=== PATIENT | female | born 2005 ===

== ENCOUNTER → 2025-07-22 11:00 | Outpatient (REF) | payer OTHER, SELFPAY ==
--- OUTSIDE RECORDS SUMMARY | 2025-07-23 14:58 | XMS_ITS | Clinical Summary ---
Author Organization [facility] Address [address] [place] [id number] Phone Care Team Providers Care Ore Puncher Name Role Phone Jumana Barney MD Primary Care Provider [phone] Allergies No known active allergies Medications No known medications Active Problems Problem Noted Date Diagnosed Date Need for vaccination 08/01/2022 Overview (01/08/2025): 08/20. Patient thinks he got flu and men b vaccine at [facility]. Will check records and f/u for vaccine visit if needed 10/21: Patient declines flu and covid vaccines, encouraged. Also reviewed HPV and continues to defer. Still believes he got Men B series, not in registry. Encouraged him to look up college vaccine records. He has follow up in 1 month and will revisit. 11/22: confirmed never received Men B vaccine in college records. Strongly recommended and declined. 01/21: continues to decline HPV. Assessment & Plan (10/15/2023 2:41 PM EST): 10/21: Patient declines flu and covid vaccines, encouraged. Still believes he got Men B series, not in registry. Encouraged him to look up college vaccine records. He has follow up in 1 month and will revisit. Assessment & Plan (08/01/2022 1:28 PM EDT): 08/20. Patient thinks he got flu and men b vaccine at [facility]. Will check records and f/u for vaccine visit if needed Screening for hyperlipidemia 07/29/2021 Overview (10/20/2023): 07/28/2021 TC 139 HDL 29 Non-HDL 109 10/21: Fasting lipids ordered with other lab work. HDL 40.7. Continue healthy diet and exercise. Assessment & Plan (10/15/2023 2:41 PM EST): 10/21: Fasting lipids ordered with other lab work. Adolescent idiopathic scoliosis of thoracic pool on 07/28/2020 Overview (10/15/2023): 5 degree curve of upper thoracic spine on scoliometer. 06/2021: unchanged 06/2022: unchanged 09/2023: unchanged Assessment & Plan (10/15/2023 3:01 PM EST): 09/2023: unchanged BMI less than 19,adult 05/09/2019 Overview (01/09/2025): 04/2019: 3rd percentile, weight 103 lbs, unchanged from 2018 [facility]. Goals: eat breakfast daily, bring snacks to school, go to grocery with mom. Discussed potential of starting periactin if no weight gain. Follow-up in 2 months. 06/2020: No follow up until [facility]. BMI now at 1st %'ile. forgets to eat at times. Discussed calorie needs, eating 3 small meals/day plus snacks and sources of high calorie healthy foods. 06/2022: refer to nutrition to start, consider labs 09/2023: BMI remains on 1st percentile. Saw nutrition for 1 visit, not helpful. Still struggling with eating enough and low appetite. No body image issues or restrictive eating. UA done, spec grav 1.030. Encouraged fluid intake. CBC, celiac, thyroid panel, CMP, ESR WNL. Will return to office in 1 month for follow up. Consider GI referral pending labs. 10/2023: Weight stable with small interval weight gain. Refer to GI/nutrition. 12/2024: Weight down 6 lbs since last year. BMI 17. Never saw GI/Nutrition. Refer back to them. Labs done last year reassuring (CBC, Thyroid, celiac, CMP/LFTs, ESR). Denies restriction or dysmorphia, wants to gain weight. Plan to start cyproheptadine for appetite stimulation, 4 mg nightly for one week, then increase to 8 mg night. Discussed side effects of medication. Plan for cycling 3 weeks on, 1 week off. Will follow up in the office in a month for weight check. Assessment & Plan (01/09/2025 12:05 AM EDT): 12/2024: Weight down 6 lbs since last year. BMI 17. Never saw GI/Nutrition. Refer back to them. Labs done last year reassuring (CBC, Thyroid, celiac, CMP/LFTs, ESR). Denies restriction or dysmorphia, wants to gain weight. Plan to start cyproheptadine for appetite stimulation, 4 mg nightly for one week, then increase to 8 mg night. Discussed side effects of medication. Plan for cycling 3 weeks on, 1 week off. Will follow up in the office in a month for weight check. Assessment & Plan (10/15/2023 3:01 PM EST): 09/2023: BMI remains on 1st percentile. Saw nutrition for 1 visit, not helpful. Still struggling with eating enough and low appetite. No body image issues or restrictive eating. UA done, spec grav 1.030. Encouraged fluid intake. CBC, celiac, thyroid panel, CMP, ESR ordered. Will return to office in 1 month for follow up. Consider GI referral pending labs. Assessment & Plan (08/01/2022 1:26 PM EDT): 06/2022: refer to nutrition to start, consider labs Myopia of both eyes 09/09/2010 Overview (01/08/2025): 12/2024: sees optho annually for eye exam. Continues to wear glasses. 04/2019: Wears glasses, working well. Assessment & Plan (01/08/2025 11:57 PM EDT): 12/2024: sees optho annually for eye exam. Continues to wear glasses. Deficiency of rlimvyb-2-cgnhjtxnu dehydrogenase (G6PD) 2007 Overview (08/01/2022): jaundice. Phototherapy. Brother with G6PD. 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 PPSV23 received 08/20 Resolved Problems Problem Noted Date Diagnosed Date Resolved Date Alcoholic intoxication without complication 07/29/2021 08/01/2022 Overview (07/29/2021): Seen at ED 12/2020: denies any further use Vaccine refused by parent 07/28/2020 Overview (07/28/2020): Defers HPV Adolescent problems 05/09/2019 07/28/20 20 Overview (07/28/2020): Spends several hours on computers, less interest in other activities. Denies depression/SI, but tearful in exam room. Discussion regarding well-being, returning to see social services director- will think about it. 06/2020: resolved. Nice friend group Pes planus 08/13/2017 08/01/2022 Overview (05/09/2019): Wears orthotics. Acquired deformity of chest and rib 01/10/2017 05/01/2018 Immunizations Immunization Administration Dates Next Due DTaP 5 11/04/2008, 6,05/12/2004,03/09,2003 Hep A, ped/adol 05/01/2008,2007 Hep B, ped/adol 08/04/2004,2003,2003 Hib (PRP-T) 11/29/2005, 4,03/09/2004,12/30 IPV 11/04/2008, 6,11/10/2004,03/09,2003 Influenza, injectable, quadr ivalent, preservative free 07/29/2021,07/28/2020 Influenza, injectable, trivalent 07/02/2014,08/30,10/10/2009 MMR 11/04/2008,11/29/2005 Meningococcal Conj (Menactra) MCV4P 07/28/2020,0 07/29/2015 Pneumococcal Conjugate 11/10/2004,2003,03/09/2004,12/30 Pneumococcal Polysaccharide 08/01/2022 Tdap 01/03/2025,07/29/2015 Varicella 11/04/2008,11/29/2005 Family History Medical History Relation Name Comments Uylntcm-2-uxql deficiency Brother Relation Name Status Comments Brother Social History Tobacco Use Types Packs/Day Years Used Date Smoking Tobacco: Never Smokeless Tobacco: Never Comments:never smoker Alcohol Use Standard Drinks/Week Comments No 0 (1 standard drink = 0.6 oz pur e alcohol) Hunger/Food Answer Date Recorded In the last 12 months, did y ou or your family ever eat less than you felt you should because there wasn't enough money for food? No 12/30/2024 Stable Housing Answer Date Recorded Are you worried that in the next 2 months you may not have stable housing? No 12/30/2024 Transportation Concerns Answer Date Rec orded In the last 12 months, have you or your family ever had to go without healthcare because you didn't have a way to get there? No 12/30/2024 Hazards in Home Answer Date Recorded Think about the place you li ve. Do you have problems with any of the following? Pests (mice or roaches), mold, no/not working smoke detectors, water leaks, no window guards. No 2024 Financing Utilities Answer Date Recorde d In the last 12 months, has t he electric, gas, oil, or water company threatened to shut off your services in your home? No 12/30/2024 Safety at Home Answer Date Recorded Are you or your family worried about feeling saf e in your home? No 12/30/2024 Outside Support Answer Date Recorded Do you feel that you need mo re support from other people or programs to help you care for yourself or your family? No 12/30/2024 Understanding Health Concerns Answer Da te Recorded Do you need help understandi ng your or your child's healthcare needs (diagnosis, medications, plan, etc.)? No 12/30/2024 Financing Health Concerns Answer Date R ecorded In the last 12 months, was t here a time when your child needed to see a doctor or get medications or supplies but could not because of cost? No 12/30/2024 Missing School or Work Answer Date Arcadio rded Did you or your child miss s chool or work because of a health problem that could have been avoided? No 12/30/2024 Child Education Answer Date Recorded Do you have concerns about y our/your child's learning or behavior in school, preschool, or daycare? No 12/30/2024 Sex and Gender Information Value Date Recorded Sex Assigned at Male 08/01/2022 11:40 AM EDT Legal Sex Male 6:38 PM EDT Gender Identity Male 07/30/2022 3:10 PM EDT Sexual Orientation Straight 07/28/2020 2: 29 PM EDT Last Filed Vital Signs Vital Sign Reading Time Taken Comments Blood Pressure 123/77 01/03/2025 4:35 PM EST Pulse 76 01/03/2025 4:35 PM EST Temperature 36.4 C (97.5 F) 05/01/2017 3:40 PM EDT Respiratory Rate - - Oxygen Saturation - - Inhaled Oxygen Concentration - - Weight 52.3 kg (115 lb 6.4 oz) 01/03/2025 4:35 P M EST Height 173.5 cm (5' 8.31 ) 01/03/2025 4:35 PM ES T Body Mass Index 17.39 01/03/2025 4:35 PM EST Plan of Treatment Health Maintenance Due Date Last Done Comments HPV Vaccines (1 - Male 3-dos e series) 2018 Men B Vaccine (1 of 2 - Standard) 2019 Influenza Vaccines (#1) 2025 07/29/20, 07/28/2020, 07/02/2014, Additional history exists COVID-19 Vaccine (4 - 2024-2 6 season) 2025 06/20/2022, 02/17/2021, 01/20/2021 DTaP,Tdap,and Td Vaccines (8 - Td or Tdap) 01/03/2035 01/03/2025, 07/29/2015, 11/04/2008, Additional history exists Hepatitis B Vaccines Completed 08/04/2004, 2003, 2003 HIB Vaccines Completed 11/29/2005, 04/29, 03/09/2004, Additional history exists Hepatitis A Vaccines Completed 05/01/2008, 11/01/19 08 IPV Vaccines Completed 11/04/2008, 11/01, 11/10/2004, Additional history exists MMR Vaccines Completed 11/04/2008, 11/29/2005 Varicella Vaccines Completed 11/04/2008, 11/29/2005 Meningococcal Vaccine Completed 07/28/2020, 015 Pneumococcal Vaccine Completed 08/01/2022, 11/10/2004, 05/12/2004, Additional history exists Insurance PPO Care Teams Ore Puncher Relationship Specialty Start Date End Date Jumana Barney MD [address] [id number] PCP - General Pediatrics 01/01/21
--- OUTSIDE RECORDS SUMMARY | 2025-07-23 14:58 | XMS_ITS | Encounter Summary ---
Author Organization [facility] Address [address] [place] [address] Phone Care Team Providers Care Youtuber Name Role Phone Jumana Barney MD Primary Care Provider [phone] Encounter Details Date Type Department Care Team ([facility] st Contact Info) Description 03/17/2017 Conversion Encounter [facility] [address] [address] Martina Modi MD Social History Tobacco Use Types Packs/Day Years Used Date Smoking Tobacco: Never Comments:never smoker Sex and Gender Information Value Date Recorded Sex Assigned at Male 08/01/2022 11:40 AM EDT Legal Sex Male 6:38 PM EDT Gender Identity Male 07/30/2022 3:10 PM EDT Sexual Orientation Straight 07/28/2020 2: 29 PM EDT documented as of this encounter Plan of Treatment Not on file documented as of this encounter Visit Diagnoses Not on filedocumented in this encounter Care Teams Youtuber Relationship Specialty Start Date End Date Jumana Barney MD [address] [address] PCP - General Pediatrics 01/01/21 documented as of this encounter
--- OUTSIDE RECORDS SUMMARY | 2025-07-23 14:58 | XMS_ITS | Encounter Summary ---
Author Organization [facility] Address [address] [place] [address] Phone Care Team Providers Care Grainer Machine Name Role Phone Jumana Barney MD Primary Care Provider [phone] Encounter Details Date Type Department Care Team ([facility] st Contact Info) Description 03/17/2017 Conversion Encounter [facility] [address] [phone] Martina Modi MD Social History Tobacco Use [...] on filedocumented in this encounter Care Teams Grainer Machine Relationship Specialty Start Date End Date Jumana Barney MD [address] [address] PCP - General Pediatrics 01/01/21 documented as of this encounter
--- OUTSIDE RECORDS SUMMARY | 2025-07-23 14:58 | XMS_ITS | Encounter Summary ---
Author Organization [facility] Address [address] [place] [address] Phone Care Team Providers Care Blood Tester Fowl Name Role Phone Jumana Barney MD Primary Care Provider [phone] Encounter Details Date Type Department Care Team ([facility] st Contact Info) Description 03/17/2017 Conversion Encounter [facility] [address] [address] Martina Modi MD Social History Tobacco Use [...] on filedocumented in this encounter Care Teams Blood Tester Fowl Relationship Specialty Start Date End Date Jumana Barney MD [address] [address] PCP - General Pediatrics 01/01/21 documented as of this encounter
--- OUTSIDE RECORDS SUMMARY | 2025-07-23 14:58 | XMS_ITS | Encounter Summary ---
Author Organization [facility] Address [address] [place] [address] Phone Care Team Providers Care Supervisor Vendor Quality Name Role Phone Jumana Barney MD Primary Care Provider [phone] Encounter Details Date Type Department Care Team ([facility] st Contact Info) Description 03/17/2017 Conversion Encounter [facility] [address] [address] Martina Modi MD Social History Tobacco Use [...] on filedocumented in this encounter Care Teams Supervisor Vendor Quality Relationship Specialty Start Date End Date Jumana Barney MD [address] [address] PCP - General Pediatrics 01/01/21 documented as of this encounter
--- NOTE | 2025-07-25 | HM_ITS ---
Conclusion: 1. Patient was monitored for total period of 7 days 2. Baseline was normal sinus rhythm with average heart of 77 beats per minute 3. Rare PACs noted 4. No significant pauses noted 5. Patient marked the counter 4 times with variable symptoms, correlating with sinus rhythm MTDD
== END ==
LOC: HO.CARD 11:00
PROVIDERS: Visit Provider Emergency Medicine
DX: R42 Dizziness and giddiness (principal)
CPT/HCPCS: 93242

== ENCOUNTER → 2025-07-25 11:15 | Outpatient (BNV) | payer OTHER, SELFPAY | PROVIDERS: Visit Provider Internal Medicine Cardiovascular Disease | DX: I49.1 Atrial premature depolarization (principal) | CPT/HCPCS: 93244 ==